=== PATIENT | male | born 1935 | race Caucasian/White ===

== ENCOUNTER → 2020-06-16 | Outpatient (CLI) | payer MEDICARE, OTHER ==
[~2020-06-16] MED LIST: ZOFRAN ODT 4 MG4 MG PO
== END ==
LOC: EXRD 12:59
DX: I70.213 Atherosclerosis of native arteries of extremities with intermittent claudication, bilateral legs (principal); R93.1 Abnormal findings on diagnostic imaging of heart and coronary circulation
CPT/HCPCS: 93922; 93925

== ENCOUNTER 2021-06-06 09:46 | Inpatient (IN) | payer MEDICARE ==
[~2021-06-06] VITALS: Ht 170.2 cm; Wt 80.3 kg
[2021-06-06 11:05] LABS: HEMOGLOBIN 13.1 gm/dl (14.0-17.5); RED BLOOD COUNT 4.43 M/UL (4.20-5.50); WHITE BLOOD COUNT 7.3 K/UL (4.5-11.0)
[2021-06-06 11:31] LABS: BUN/CREATININE RATIO 23 (0-10)
[2021-06-06] MEDS ORDERED: DOXYCYCLINE HY100 MG PO (15:03)
[2021-06-06] MEDS ORDERED: DONEPEZIL HCL5 MG PO (15:04)
[2021-06-06] MEDS ORDERED: CRESTOR10 MG PO (15:07)
[2021-06-06] MEDS ORDERED: VAZALORE81 MG PO (15:08)
[2021-06-06] MEDS ORDERED: TOPROL XL25 MG PO (15:08)
[2021-06-06] MEDS ORDERED: TRADJENTA5 MG PO (15:09)
[2021-06-06] MEDS ORDERED: BACLOFEN5 MG PO (15:09)
[2021-06-06] MEDS ORDERED: MEMANTINE HCL E28 MG PO (15:10)
[2021-06-06] MEDS ORDERED: CLOPIDOGREL75 MG PO (15:11)
[2021-06-06] MEDS ORDERED: ZINC-22050 MG PO (15:11)
--- NOTE | 2021-06-06 21:53 | NUR ---
2140 tele called to notify of patient having a 2.8 second pause, provider notified and no new orders at with time. will continue to monitor and assess
[2021-06-07 06:55] LABS: HEMOGLOBIN 13.9 gm/dl (14.0-17.5); RED BLOOD COUNT 4.64 M/UL (4.20-5.50); WHITE BLOOD COUNT 7.3 K/UL (4.5-11.0)
--- NOTE | 2021-06-07 19:57 | NUR ---
1906 CONTACTED [employer] TO BRING TP AND PAPER TOWELS TO PATIENTS RESTROOM.
[2021-06-08 07:50] LABS: HEMOGLOBIN 14.1 gm/dl (14.0-17.5); RED BLOOD COUNT 4.75 M/UL (4.20-5.50); WHITE BLOOD COUNT 10.6 K/UL (4.5-11.0)
--- NOTE | 2021-06-09 02:22 | NUR ---
1904 UPON INITAL SHIFT ASSESSMENT THE PATIENTS ASKED IF HER WAS GOING TO BE SHOWERED TODAY. I STATED " I WILL LET THE TECH KNOW". SHE REPLIED SHE WAS TOLD THAT ALREADY TODAY AND THAT THEY WERE TOLD THEY HAD TO WAIT ON DR ORDERS TO REMOVE THE HEART MONITOR SO HE COULD SHOWER. I EXPLAIND THAT WE ARE ABLE TO REMOVE IT BRIEFLY TO GET HIM SHOWERED AND PLACE IT BACK ON. I EXPLAINED THAT THE TECH HAD TO GET HER VITALS AND I HAD ASSESSMENTS AND MEDS TO PASS BUT SOON WE HAD A FREE MIN WE WOULD GLADLY GET HIM SHOWERED. (THE REPORT THAT I HAD GOTTEN SINCE THE PATIENTS ADMISSION ON 06/06 WAS THAT THE WAS IN THE ROOM AND TAKING CARE OF THE PATIENTS ADL'S). APPROX [id number] WE WERE ABLE TO SHOWER THE PATIENT AND HIS TOLD US THAT IT WAY WAY TOO LATE, IT WAS PAST THIE BEDTIME AND THAT HE WILL JUST WAIT TILL TOMORROW. I GAVE THE SOME WASH CLOTHES AND TOWELS AND SOAP. ALSO FRESH ICE AND WATER ALONG WITH SOME CRACKERS AND PEANUTBUTTER CLOTHES AND OVIDIO AND A BASIN WITH SOAP
[2021-06-09 06:21] LABS: HEMOGLOBIN 13.1 gm/dl (14.0-17.5); RED BLOOD COUNT 4.46 M/UL (4.20-5.50)
[2021-06-09 06:23] LABS: WHITE BLOOD COUNT 7.8 K/UL (4.5-11.0)
[2021-06-09] MEDS ORDERED: MEDROL DOSEPAK 24 MG PO (10:10)
[2021-06-09] MEDS ORDERED: OMNICEF 300 MG300 MG PO (10:10)
[2021-06-09] MEDS ORDERED: XOPENEX HFA15 GM INH (10:10)
== END 2021-06-09 13:11 | disposition home or self-care (01) | DRG 177 ==
LOC: ER1 09:46 → CDU 13:25 → M/S 13:25
PROVIDERS: Emergency Medicine; Internal Medicine; ADMIT Internal Medicine
PROC: 8E0ZXY6 Isolation (ICD-10-PCS; principal; 2021-06-06)
PROC: 3E0333Z Introduction of Anti-inflammatory into Peripheral Vein, Percutaneous Approach (ICD-10-PCS; 2021-06-06)
DX: U07.1 COVID-19 (principal); J12.82 Pneumonia due to coronavirus disease 2019; J96.01 Acute respiratory failure with hypoxia; J15.9 Unspecified bacterial pneumonia; N18.4 Chronic kidney disease, stage 4 (severe); I25.10 Atherosclerotic heart disease of native coronary artery without angina pectoris; I77.1 Stricture of artery; E11.51 Type 2 diabetes mellitus with diabetic peripheral angiopathy without gangrene; I12.9 Hypertensive chronic kidney disease with stage 1 through stage 4 chronic kidney disease, or unspecified chronic kidney disease; I73.9 Peripheral vascular disease, unspecified; I51.7 Cardiomegaly; E78.5 Hyperlipidemia, unspecified; E11.22 Type 2 diabetes mellitus with diabetic chronic kidney disease; Z95.1 Presence of aortocoronary bypass graft; Z95.828 Presence of other vascular implants and grafts; Z79.899 Other long term (current) drug therapy; Z83.3 Family history of diabetes mellitus; Z79.82 Long term (current) use of aspirin
CPT/HCPCS: 0240U; 36415; 71045; 80048; 80053; 81001; 82550; 82553; 82962; 83036; 83735; 83874; 83880; 84484; 85025; 85027; 93005; 94640; 94760; 96374; 99285; J0696; J1100; J1644

== ENCOUNTER → 2021-10-27 | Outpatient (CLI) | payer MEDICARE ==
[~2021-10-27] MED LIST changes: +BACLOFEN5 MG PO; +CLOPIDOGREL75 MG PO; +CRESTOR10 MG PO; +DONEPEZIL HCL5 MG PO; +DOXYCYCLINE HY100 MG PO; +MEDROL DOSEPAK 24 MG PO; +MEMANTINE HCL E28 MG PO; +OMNICEF 300 MG300 MG PO; +TOPROL XL25 MG PO; +TRADJENTA5 MG PO; +VAZALORE81 MG PO; +XOPENEX HFA15 GM INH; +ZINC-22050 MG PO
== END ==
LOC: EXRD 14:59
DX: E11.51 Type 2 diabetes mellitus with diabetic peripheral angiopathy without gangrene (principal); M79.604 Pain in right leg; M79.605 Pain in left leg
CPT/HCPCS: 93925

== ENCOUNTER → 2021-11-12 | Outpatient (CLI) | payer MEDICARE ==
[2021-11-12 10:43] LABS: HEMOGLOBIN 12.4 gm/dl (14.0-17.5); RED BLOOD COUNT 3.88 M/UL (4.20-5.50); WHITE BLOOD COUNT 5.3 K/UL (4.5-11.0)
== END ==
LOC: LAB 10:14
PROVIDERS: Surgery
DX: R13.19 Other dysphagia (principal)
CPT/HCPCS: 36415; 71046; 80048; 85025; 93005